=== PATIENT | male | born 1975 | race Caucasian/White ===

== ENCOUNTER 2017-08-18 08:15 | Outpatient (CLI) | payer OTHER ==
[2017-08-18 12:26] LABS: BASOPHILS % (AUTO) 0.6 %; EOSINOPHILS # (AUTO) 0.2 10^3/uL (0.0-0.7); EOSINOPHILS % (AUTO) 3.2 %; HGB - HEMOGLOBIN 16.6 g/dL (14.0-18.0); LYMPHOCYTES # (AUTO) 2.1 10^3/uL (1.5-3.5); LYMPHOCYTES % (AUTO) 29.2 %; MEAN CORPUSCULAR HEMOGLOBIN 30.5 pg (27.0-31.0); MEAN CORPUSCULAR HGB CONC 34.5 g/dL (32.0-36.0); MEAN CORPUSCULAR VOLUME 88.4 fL (80.0-94.0); MEAN PLATELET VOLUME 9.9 fL (7.4-11.4); MONOCYTES # (AUTO) 0.4 10^3/uL (0.0-1.0); MONOCYTES % (AUTO) 5.6 %; NEUTROPHILS # (AUTO) 4.5 10^3/uL (1.5-6.6); NEUTROPHILS % (AUTO) 61.4 %; PLT - PLATELET COUNT 285 10^3/uL (130-450); RED BLOOD COUNT 5.45 10^6/uL (4.70-6.10); RED CELL DISTRIBUTION WIDTH 13.1 % (12.0-15.0); WHITE BLOOD COUNT 7.3 x10^3/uL (4.8-10.8)
[2017-08-18 12:42] LABS: ALBUMIN 4.4 g/dL (3.2-5.5); ALBUMIN/GLOBULIN RATIO 1.5 (1.0-2.2); ALKALINE PHOSPHATASE 58 IU/L (42-121); ALT ALANINE AMINOTRANSFERASE 42 IU/L (10-60); AST ASPARTATE AMINOTRANSFERASE 27 IU/L (10-42); BILIRUBIN,TOTAL 1.2 mg/dL (0.2-1.0); BUN - BLOOD UREA NITROGEN 14 mg/dL (6-20); CALCIUM 8.8 mg/dL (8.5-10.3); CARBON DIOXIDE - CO2 23 mmol/L (21-32); CHLORIDE 104 mmol/L (101-111); CHOL/HDL RATIO 9.5 (<5.0); CHOLESTEROL 237 mg/dL; GFR - MDRD 81 (>89); GLUCOSE 95 mg/dL (70-100); HDL CHOLESTEROL 25 mg/dL; LDL CHOLESTEROL,CALCULATED 140 mg/dL; LDL/HDL RATIO 5.6 (<3.6); SODIUM 135 mmol/L (135-145); TOTAL PROTEIN 7.4 g/dL (6.7-8.2); VLDL CHOLESTEROL 72 mg/dL
[2017-08-18 12:44] LABS: PLATELET ESTIMATE, MANUAL NORMAL (130-450,000) (NORMAL); PLATELET MORPHOLOGY 1+ LARGE PLATELETS (NORMAL); RBC MORPHOLOGY (MULTIPLE) NORMAL APPEARANCE (NORMAL)
== END 2017-08-18 08:16 | disposition home or self-care (01) ==
LOC: LAB.N 08:15
PROVIDERS: ATTEND Family Medicine
DX: E66.9 Obesity, unspecified (principal); K21.9 Gastro-esophageal reflux disease without esophagitis
CPT/HCPCS: 36415; 80053; 80061; 83721; 84443; 85025

== ENCOUNTER 2019-10-16 21:28 | Observation (INO) | payer BC, OTHER ==
[2019-10-16] MEDS ORDERED: SODIUM CHLORIDE 0.9% 1,000 ML IV STA (21:39)
[2019-10-16] MEDS ORDERED: MORPHINE 2 MG/ML CARPUJECT IVP STA (21:39)
[2019-10-16] MEDS ORDERED: ONDANSETRON 4 MG/2 ML VIAL IVP STA (21:39)
--- NOTE | 2019-10-16 21:39 | ED Physician Documentation ---
History of Present Illness - Stated complaint Stated Complaint: ABD PAIN - Chief complaint Chief Complaint: Abd Pain - History obtained from History obtained from: Patient (Patient is a 44-year-old male presents with worsening abdominal pain notes started epigastric this morning and now is having vomiting now to his periumbilical region. Denies any significant past medical history reports low-grade fever as well denies any syncopal episodes denies any hematuria or flank pain denies any history of previous abdominal surgery.) Review of Systems Constitutional: reports: Reviewed and negative Eyes: reports: Reviewed and negative Ears: reports: Reviewed and negative Nose: reports: Reviewed and negative Throat: reports: Reviewed and negative Cardiac: reports: Reviewed and negative Respiratory: reports: Reviewed and negative GI: reports: Abdominal Pain, Nausea, Vomiting : reports: Reviewed and negative Skin: reports: Reviewed and negative Musculoskeletal: reports: Reviewed and negative Neurologic: reports: Reviewed and negative Psychiatric: reports: Reviewed and negative Endocrine: reports: Reviewed and negative Immunocompromised: reports: Reviewed and negative PD PAST MEDICAL HISTORY - Past Medical History Past Medical History: Yes Cardiovascular: None Respiratory: None Neuro: None Endocrine/Autoimmune: None GI: GERD : None HEENT: None Psych: None Musculoskeletal: None Derm: None - Past Surgical History Past Surgical History: Yes General: Other Ortho: Other - Allergies Allergies/Adverse Reactions: Allergies Allergy/AdvReac Type Severity Reaction Status Date / Time No Known Drug Allergies Allergy Verified 10/16/19 21:35 - Social History Does the pt smoke?: Yes Smoking Status: Current every day smoker Does the pt drink ETOH?: Yes Does the pt have substance abuse?: No - Immunizations Immunizations are current?: Yes - POLST Patient has POLST: No PD ED PE NORMAL - Vitals Vital signs reviewed: Yes - General General: Alert and oriented X 3, No acute distress, Well developed/nourished - HEENT HEENT: PERRL - Neck Neck: Supple, no meningeal sign - Cardiac Cardiac: RRR, No murmur, Strong equal pulses - Respiratory Respiratory: No respiratory distress, Clear bilaterally - Abdomen Abdomen: Other (The abdomen is diffusely tender to palpation but worse in the right lower quadrant he has some voluntary guarding has a positive Rovsing's positive Urb[place] sign. Negative Urbina sign. 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, No motor deficit, No sensory deficit, Normal speech - Psych Psych: Normal mood, Normal affect Results - Vitals Vitals: Vital Signs - 24 hr 10/16/19 10/16/19 10/16/19 21:32 22:14 22:39 Temperature 37.8 C H Heart Rate 80 89 Respiratory 18 17 16 Rate Blood Pressure 143/106 H 136/96 H O2 Saturation 97 98 10/16/19 10/16/19 10/17/19 22:50 22:54 00:13 Temperature Heart Rate 83 81 Respiratory 17 16 16 Rate Blood Pressure 111/95 H O2 Saturation 96 99 10/17/19 10/17/19 00:50 01:05 Temperature 36.9 C Heart Rate 78 Respiratory 17 Rate Blood Pressure 119/88 H O2 Saturation 99 Oxygen O2 Source Room air - EKG (time done) 21:38 Rate: Other (no stemi) - Labs Labs: Laboratory Tests 10/16/19 10/16/19 10/16/19 21:45 21:45 21:45 WBC 15.8 H RBC 5.20 Hgb 16.3 Hct 46.9 MCV 90.2 MCH 31.3 H MCHC 34.8 RDW 12.4 Plt Count 279 MPV 9.7 Neut # (Auto) 13.4 H Lymph # (Auto) 1.4 L [place] # (Auto) 0.7 Eos # (Auto) 0.2 Baso # (Auto) 0.1 Absolute Nucleated RBC 0.00 Nucleated RBC % 0.0 PT 12.4 INR 1.1 APTT 30.6 Sodium 136 Potassium 3.5 Chloride 100 L Carbon Dioxide 25 Anion Gap 11.0 BUN 16 Creatinine 1.1 Estimated GFR (MDRD) 72 L Glucose 141 H Lactic Acid Calcium 9.3 Total Bilirubin 0.8 AST 23 ALT 39 Alkaline Phosphatase 65 Total Creatine Kinase 334 H Troponin I High Sens Total Protein 7.5 Albumin 4.1 Globulin 3.4 Albumin/Globulin Ratio 1.2 Lipase 32 Urine Color Urine Clarity Urine pH Ur Specific [place] Urine Protein Urine Glucose (UA) Urine Ketones Urine Occult Blood Urine Nitrite Urine Bilirubin Urine Urobilinogen Ur Leukocyte Esterase Urine RBC Urine WBC Ur Squamous Epith Cells Urine Bacteria Urine Mucus Ur Microscopic Review Urine Culture Comments Urine Opiates Screen Ur Oxycodone Screen Urine Methadone Screen Ur Propoxyphene Screen Ur Barbiturates Screen Ur Tricyclics Screen Ur Phencyclidine Scrn Ur Amphetamine Screen U Methamphetamines Scrn U Benzodiazepines Scrn Urine Cocaine Screen U Cannabinoids Screen Ethyl Alcohol < 5.0 10/16/19 10/16/19 10/16/19 21:45 21:45 23:05 WBC RBC Hgb Hct MCV MCH MCHC RDW Plt Count MPV Neut # (Auto) Lymph # (Auto) [place] # (Auto) Eos # (Auto) Baso # (Auto) Absolute Nucleated RBC Nucleated RBC % PT INR APTT Sodium Potassium Chloride Carbon Dioxide Anion Gap BUN Creatinine Estimated GFR (MDRD) Glucose Lactic Acid 2.3 H Calcium Total Bilirubin AST ALT Alkaline Phosphatase Total Creatine Kinase Troponin I High Sens 3.9 Total Protein Albumin Globulin Albumin/Globulin Ratio Lipase Urine Color YELLOW Urine Clarity CLEAR Urine pH 7.0 Ur Specific [place] 1.010 Urine Protein NEGATIVE Urine Glucose (UA) NEGATIVE Urine Ketones NEGATIVE Urine Occult Blood MODERATE H Urine Nitrite NEGATIVE Urine Bilirubin NEGATIVE Urine Urobilinogen 0.2 (NORMAL) Ur Leukocyte Esterase NEGATIVE Urine RBC 11-25 H Urine WBC 0-3 Ur Squamous Epith Cells RARE Squamous Urine Bacteria Rare Urine Mucus Few Strands Ur Microscopic Review INDICATED Urine Culture Comments NOT INDICATED Urine Opiates Screen POSITIVE H Ur Oxycodone Screen NEGATIVE Urine Methadone Screen NEGATIVE Ur Propoxyphene Screen NEGATIVE Ur Barbiturates Screen NEGATIVE Ur Tricyclics Screen NEGATIVE Ur Phencyclidine Scrn NEGATIVE Ur Amphetamine Screen NEGATIVE U Methamphetamines Scrn NEGATIVE U Benzodiazepines Scrn NEGATIVE Urine Cocaine Screen NEGATIVE U Cannabinoids Screen NEGATIVE Ethyl Alcohol PD MEDICAL DECISION MAKING - ED course Complexity details: reviewed results, re-evaluated patient, considered differential (appendicitis), d/w patient, d/w family, d/w exchange underwriting consultant - Consults Consults: Discussed case with (general surgery. dr. parson. will admit and take to OR in am.) Departure - Departure Disposition: ED Transfer to [facility] Clinical Impression: Appendicitis Qualifiers: Appendicitis type: acute appendicitis Acute appendicitis type: with localized peritonitis Appendicitis gangrene presence: without gangrene Appendicitis perforation presence: without perforation Appendicitis abscess presence: without abscess Qualified Code(s): K35.30 - Acute appendicitis with localized peritonitis, without perforation or gangrene Condition: Stable
[2019-10-16 21:51] LABS: BASOPHILS # (AUTO) 0.1 10^3/uL (0.0-0.1); BASOPHILS % (AUTO) 0.5 %; EOSINOPHILS # (AUTO) 0.2 10^3/uL (0.0-0.7); EOSINOPHILS % (AUTO) 1.3 %; HGB - HEMOGLOBIN 16.3 g/dL (14.0-18.0); LYMPHOCYTES # (AUTO) 1.4 10^3/uL (1.5-3.5); LYMPHOCYTES % (AUTO) 8.6 %; MEAN CORPUSCULAR HEMOGLOBIN 31.3 pg (27.0-31.0); MEAN CORPUSCULAR HGB CONC 34.8 g/dL (32.0-36.0); MEAN CORPUSCULAR VOLUME 90.2 fL (80.0-94.0); MEAN PLATELET VOLUME 9.7 fL (7.4-11.4); MONOCYTES # (AUTO) 0.7 10^3/uL (0.0-1.0); MONOCYTES % (AUTO) 4.2 %; NEUTROPHILS # (AUTO) 13.4 10^3/uL (1.5-6.6); PLT - PLATELET COUNT 279 10^3/uL (130-450); RED CELL DISTRIBUTION WIDTH 12.4 % (12.0-15.0); WHITE BLOOD COUNT 15.8 x10^3/uL (4.8-10.8)
[2019-10-16 21:57] LABS: INR 1.1 (0.8-1.2); PT - PROTHROMBIN TIME 12.4 secs (9.9-12.6)
[2019-10-16] MEDS ORDERED: PROMETHAZINE INJ 25 MG in SODIUM CHLORIDE 0.9% 50 ML IV STA (21:58)
[2019-10-16 22:04] LABS: PARTIAL THROMBOPLASTIN TIME 30.6 secs (24.9-33.3)
[2019-10-16 22:06] LABS: ALBUMIN 4.1 g/dL (3.2-5.5); ALBUMIN/GLOBULIN RATIO 1.2 (1.0-2.2); ALKALINE PHOSPHATASE 65 IU/L (42-121); ALT ALANINE AMINOTRANSFERASE 39 IU/L (10-60); AST ASPARTATE AMINOTRANSFERASE 23 IU/L (10-42); BILIRUBIN,TOTAL 0.8 mg/dL (0.2-1.0); BUN - BLOOD UREA NITROGEN 16 mg/dL (6-20); CALCIUM 9.3 mg/dL (8.5-10.3); CARBON DIOXIDE - CO2 25 mmol/L (21-32); CHLORIDE 100 mmol/L (101-111); CK- CREATINE KINASE 334 IU/L (22-269); CREATININE 1.1 mg/dL (0.6-1.2); GLUCOSE 141 mg/dL (70-100); LIPASE 32 U/L (22-51); SODIUM 136 mmol/L (135-145); TOTAL PROTEIN 7.5 g/dL (6.7-8.2)
[2019-10-16] MEDS ORDERED: IOVERSOL 320 100 ML VIAL IVP ONE ×2 (22:22→22:52)
[2019-10-16 23:15] LABS: MUDS CUTOFF CONCENTRATIONS CUTOFF CONC BELOW:
[2019-10-16 23:18] LABS: BILIRUBIN,URINE NEGATIVE (NEGATIVE); GLUCOSE, URINE (UA) NEGATIVE (NEGATIVE); KETONES,URINE (UA) NEGATIVE (NEGATIVE); LEUKOCYTE ESTERASE, URINE NEGATIVE (NEGATIVE); NITRITE,URINE NEGATIVE (NEGATIVE); OCCULT BLOOD,URINE MODERATE (NEGATIVE); PROTEIN,URINE NEGATIVE (NEGATIVE); UROBILINOGEN,URINE 0.2 (NORMAL) E.U./dL (NORMAL)
[2019-10-16 23:19] LABS: CLARITY,URINE CLEAR (CLEAR)
[2019-10-16 23:24] LABS: BACTERIA,URINE Rare /HPF (None Seen); MUCUS,URINE Few Strands; SQUAMOUS EPITHELIAL CELL,UR RARE Squamous (<= Few)
[2019-10-16 23:28] LABS: AMPHETAMINE SCREEN,URINE NEGATIVE (NEGATIVE); BENZODIAZEPINES SCREEN, URINE NEGATIVE (NEGATIVE); COCAINE SCREEN URINE NEGATIVE (NEGATIVE); METHADONE SCREEN, URINE NEGATIVE (NEGATIVE); METHAMPHETAMINES SCREEN, URINE NEGATIVE (NEGATIVE); OPIATE SCREEN, URINE POSITIVE (NEGATIVE); OXYCODONE SCREEN, URINE NEGATIVE (NEGATIVE); PROPOXYPHENE SCREEN, URINE NEGATIVE (NEGATIVE); TRICYCLIC ANTIDEPRESSANT,URINE NEGATIVE (NEGATIVE)
[2019-10-17] MEDS ORDERED: PIPERACILLIN/TAZOBACTAM 3.375 GM in SODIUM CHLORIDE 0.9% MINIBAG 100 ML IV STA (00:50)
[2019-10-17] MEDS ORDERED: SODIUM CHLORIDE FLUSH 0.9% 10 ML SYRINGE IVP PRN ×2 (01:15→02:18)
--- NOTE | 2019-10-17 01:28 | HISTORY & PHYSICAL EXAMINATION ---
HPI - History Obtained From History obtained from: Patient Exam limitations: No limitations - History of Present Illness Pain/Problem Location Description: ABDOMINAL PAIN WITH NAUSEA AND VOMITING Severity at the worst: reports: Severe Pain Quality: reports: Sharp, Cramping, Other (RLQ pain - initially achy, superpubic, migrating epigastric, now diffuse. Associated nausea with emesis. No diarrhea.) PMH/PSH - Past Medical History Cardiovascular: positive: None Respiratory: positive: None Neuro: positive: None Endocrine/Autoimmune: positive: None GI: positive: GERD : positive: None HEENT: positive: None Psych: positive: None Musculoskeletal: positive: None Derm: positive: None MRSA Hx?: No - Past Surgical History General: positive: Other Ortho: positive: Other Other past surgical history: UMBILICAL HERNIA REPAIR, PRIMARY (DENIES MESH) Social & Family Hx - Social History Does the pt smoke?: Yes Smoking Status: Current every day smoker Does the pt drink ETOH?: Yes Does the pt have substance abuse?: No - POLST Patient has POLST: No Meds/Allgy - Allergies Allergies/Adverse Reactions: Allergies Allergy/AdvReac Type Severity Reaction Status Date / Time No Known Drug Allergies Allergy Verified 10/16/19 21:35 Review of Systems - Constitutional Constitutional: reports: Fatigue, Fever - Gastrointestinal Gastrointestinal: reports: Nausea, Vomiting Exam - Vital Signs Vital Signs: Vital Signs x48h Temp Pulse Resp BP Pulse Ox 10/17/19 01:05 78 17 119/88 H 99 10/17/19 00:50 36.9 C 10/17/19 00:13 81 16 111/95 H 99 10/16/19 22:54 16 10/16/19 22:50 83 17 96 10/16/19 22:39 16 10/16/19 22:14 89 17 136/96 H 98 10/16/19 21:32 37.8 C H 80 18 143/106 H 97 - Physical Exam General Appearance: positive: Moderate distress Eyes Bilateral: positive: Normal inspection, PERRL, EOMI Neck: positive: Nml inspection Respiratory: positive: Chest non-tender, No respiratory distress, Breath sounds nml Cardiovascular: positive: Regular rate & rhythm, Tachycardia Abdomen: positive: Tenderness, Guarding, Rebound Skin: positive: Color nml Extremities: positive: Full ROM Neurologic/Psychiatric: positive: Oriented x3, CN's nml (2-12) Results - Lab Results Fish Bones: 10/16/19 21:45 10/16/19 21:45 Other Lab Results: Lab Results x24hrs 10/16/19 10/16/19 10/16/19 Range/Units 23:05 21:45 21:45 WBC (4.8-10.8) x10^3/uL RBC (4.70-6.10) 10^6/uL Hgb (14.0-18.0) g/dL Hct (42.0-52.0) % MCV (80.0-94.0) fL MCH (27.0-31.0) pg MCHC (32.0-36.0) g/dL RDW (12.0-15.0) % Plt Count (130-450) 10^3/uL MPV (7.4-11.4) fL Neut # (Auto) (1.5-6.6) 10^3/uL Lymph # (Auto) (1.5-3.5) 10^3/uL [place] # (Auto) (0.0-1.0) 10^3/uL Eos # (Auto) (0.0-0.7) 10^3/uL Baso # (Auto) (0.0-0.1) 10^3/uL Absolute Nucleated RBC x10^3/uL Nucleated RBC % /100WBC PT (9.9-12.6) secs INR (0.8-1.2) APTT (24.9-33.3) secs Sodium (135-145) mmol/L Potassium (3.5-5.0) mmol/L Chloride (101-111) mmol/L Carbon Dioxide (21-32) mmol/L Anion Gap (6-13) BUN (6-20) mg/dL Creatinine (0.6-1.2) mg/dL Estimated GFR (MDRD) (>89) Glucose (70-100) mg/dL Lactic Acid 2.3 H (0.5-2.2) mmol/L Calcium (8.5-10.3) mg/dL Total Bilirubin (0.2-1.0) mg/dL AST (10-42) IU/L ALT (10-60) IU/L Alkaline Phosphatase (42-121) IU/L Total Creatine Kinase (22-269) IU/L Troponin I High Sens 3.9 (2.3-19.7) ng/L Total Protein (6.7-8.2) g/dL Albumin (3.2-5.5) g/dL Globulin (2.1-4.2) g/dL Albumin/Globulin Ratio (1.0-2.2) Lipase (22-51) U/L Urine Color YELLOW Urine Clarity CLEAR (CLEAR) Urine pH 7.0 (5.0-7.5) PH Ur Specific [place] 1.010 (1.002-1.030) Urine Protein NEGATIVE (NEGATIVE) mg/dL Urine Glucose (UA) NEGATIVE (NEGATIVE) mg/dL Urine Ketones NEGATIVE (NEGATIVE) mg/dL Urine Occult Blood MODERATE H (NEGATIVE) Urine Nitrite NEGATIVE (NEGATIVE) Urine Bilirubin NEGATIVE (NEGATIVE) Urine Urobilinogen 0.2 (NORMAL) (NORMAL) E.U./dL Ur Leukocyte Esterase NEGATIVE (NEGATIVE) Urine RBC 11-25 H (0-5) /HPF Urine WBC 0-3 (0-3) /HPF Ur Squamous Epith Cells RARE Squamous (<= Few) Urine Bacteria Rare (None Seen) /HPF Urine Mucus Few Strands Ur Microscopic Review INDICATED Urine Culture Comments NOT INDICATED Urine Opiates Screen POSITIVE H (NEGATIVE) Ur Oxycodone Screen NEGATIVE (NEGATIVE) Urine Methadone Screen NEGATIVE (NEGATIVE) Ur Propoxyphene Screen NEGATIVE (NEGATIVE) Ur Barbiturates Screen NEGATIVE (NEGATIVE) Ur Tricyclics Screen NEGATIVE (NEGATIVE) Ur Phencyclidine Scrn NEGATIVE (NEGATIVE) Ur Amphetamine Screen NEGATIVE (NEGATIVE) U Methamphetamines Scrn NEGATIVE (NEGATIVE) U Benzodiazepines Scrn NEGATIVE (NEGATIVE) Urine Cocaine Screen NEGATIVE (NEGATIVE) U Cannabinoids Screen NEGATIVE (NEGATIVE) Ethyl Alcohol mg/dL 10/16/19 10/16/19 10/16/19 Range/Units 21:45 21:45 21:45 WBC 15.8 H (4.8-10.8) x10^3/uL RBC 5.20 (4.70-6.10) 10^6/uL Hgb 16.3 (14.0-18.0) g/dL Hct 46.9 (42.0-52.0) % MCV 90.2 (80.0-94.0) fL MCH 31.3 H (27.0-31.0) pg MCHC 34.8 (32.0-36.0) g/dL RDW 12.4 (12.0-15.0) % Plt Count 279 (130-450) 10^3/uL MPV 9.7 (7.4-11.4) fL Neut # (Auto) 13.4 H (1.5-6.6) 10^3/uL Lymph # (Auto) 1.4 L (1.5-3.5) 10^3/uL [place] # (Auto) 0.7 (0.0-1.0) 10^3/uL Eos # (Auto) 0.2 (0.0-0.7) 10^3/uL Baso # (Auto) 0.1 (0.0-0.1) 10^3/uL Absolute Nucleated RBC 0.00 x10^3/uL Nucleated RBC % 0.0 /100WBC PT 12.4 (9.9-12.6) secs INR 1.1 (0.8-1.2) APTT 30.6 (24.9-33.3) secs Sodium 136 (135-145) mmol/L Potassium 3.5 (3.5-5.0) mmol/L Chloride 100 L (101-111) mmol/L Carbon Dioxide 25 (21-32) mmol/L Anion Gap 11.0 (6-13) BUN 16 (6-20) mg/dL Creatinine 1.1 (0.6-1.2) mg/dL Estimated GFR (MDRD) 72 L (>89) Glucose 141 H (70-100) mg/dL Lactic Acid (0.5-2.2) mmol/L Calcium 9.3 (8.5-10.3) mg/dL Total Bilirubin 0.8 (0.2-1.0) mg/dL AST 23 (10-42) IU/L ALT 39 (10-60) IU/L Alkaline Phosphatase 65 (42-121) IU/L Total Creatine Kinase 334 H (22-269) IU/L Troponin I High Sens (2.3-19.7) ng/L Total Protein 7.5 (6.7-8.2) g/dL Albumin 4.1 (3.2-5.5) g/dL Globulin 3.4 (2.1-4.2) g/dL Albumin/Globulin Ratio 1.2 (1.0-2.2) Lipase 32 (22-51) U/L Urine Color Urine Clarity (CLEAR) Urine pH (5.0-7.5) PH Ur Specific [place] (1.002-1.030) Urine Protein (NEGATIVE) mg/dL Urine Glucose (UA) (NEGATIVE) mg/dL Urine Ketones (NEGATIVE) mg/dL Urine Occult Blood (NEGATIVE) Urine Nitrite (NEGATIVE) Urine Bilirubin (NEGATIVE) Urine Urobilinogen (NORMAL) E.U./dL Ur Leukocyte Esterase (NEGATIVE) Urine RBC (0-5) /HPF Urine WBC (0-3) /HPF Ur Squamous Epith Cells (<= Few) Urine Bacteria (None Seen) /HPF Urine Mucus Ur Microscopic Review Urine Culture Comments Urine Opiates Screen (NEGATIVE) Ur Oxycodone Screen (NEGATIVE) Urine Methadone Screen (NEGATIVE) Ur Propoxyphene Screen (NEGATIVE) Ur Barbiturates Screen (NEGATIVE) Ur Tricyclics Screen (NEGATIVE) Ur Phencyclidine Scrn (NEGATIVE) Ur Amphetamine Screen (NEGATIVE) U Methamphetamines Scrn (NEGATIVE) U Benzodiazepines Scrn (NEGATIVE) Urine Cocaine Screen (NEGATIVE) U Cannabinoids Screen (NEGATIVE) Ethyl Alcohol < 5.0 mg/dL - Diagnostic Imaging Results Diagnostic Imaging Results: positive: Prelim report reviewed (ACUTE APPEND ICITIS, RETROCECAL, FAT STRANDING, NONPERFORATED) Sepsis Event Note (H) - Evaluation Current Stage of Sepsis: Sepsis Possible source of Sepsis: positive: GI tract/intra-abdominal Confirmed Source and Organism (if known) of Sepsis: PRESUMED APPENDICITIS PER IMAGING - Sepsis Criteria Sepsis Criteria: Recorded Temperature greater than 38.3C or Less than 36C, Recorded Heart Rate greater than 90 bpm, WBC count greater than 12,000 or less than 4000 Impression/Plan - Problem List Problem List: ACUTE APPENDICITIS WITH ABDOMINAL SEPSIS, ELEVATED WBC. NO SIGNIFICANT PMH. CXR CLEAR. - NPO, IVF, IV ABX. - OR FOR DX LAP, LAP APPE. - OBSERVATION FOR POST OPERATIVE CARE.
[2019-10-17] MEDS ORDERED: LACTATED RINGERS 1,000 ML IV ONE (01:46)
[2019-10-17] MEDS ORDERED: BUPIVACAINE 0.5% PF 30 ML VIAL ONE (01:56)
[2019-10-17] MEDS ORDERED: LIDOCAINE 1%-EPI 1:100000 20 ML MDV ONE (01:56)
[2019-10-17] MEDS ORDERED: ACETAMINOPHEN 1,000 MG/100 ML 100 ML IV SCH (02:00)
[2019-10-17] MEDS ORDERED: ROPIVACAINE 0.5% PF 20 ML AMPULE ONE (02:11)
[2019-10-17] MEDS ORDERED: oxyCODONE 5 MG TABLET PO PRN (02:18)
[2019-10-17] MEDS ORDERED: ONDANSETRON 4 MG/2 ML VIAL IVP PRN (02:18)
[2019-10-17] MEDS ORDERED: HYDROmorphone 0.5 MG/0.5 ML SYRINGE IVP PRN (02:18)
[2019-10-17] MEDS ORDERED: ONDANSETRON 4 MG/2 ML VIAL IVP ONE (02:22)
[2019-10-17] MEDS ORDERED: DEXAMETHASONE 4 MG/ML VIAL IVP ONE (02:22)
[2019-10-17] MEDS ORDERED: LIDOCAINE-MPF 2% 5 ML VIAL IM ONE (02:22)
[2019-10-17] MEDS ORDERED: NEOSTIGMINE 1 MG/1 ML 10 ML MDV IVP ONE (02:22)
[2019-10-17] MEDS ORDERED: PROPOFOL 200 MG/20 ML VIAL IVP ONE (02:22)
[2019-10-17] MEDS ORDERED: KETOROLAC 30 MG/ML VIAL IVP ONE (02:22)
[2019-10-17] MEDS ORDERED: PHENYLEPHRINE 10 MG/ML VIAL IV ONE (02:22)
[2019-10-17] MEDS ORDERED: ROCURONIUM 50 MG/5 ML VIAL IVP ONE (02:22)
[2019-10-17] MEDS ORDERED: ACETAMINOPHEN 1,000 MG/100 ML 100 ML IV ONE (02:22)
[2019-10-17] MEDS ORDERED: fentaNYL 100 MCG/2 ML VIAL IVP ONE (02:22)
[2019-10-17] MEDS ORDERED: GLYCOPYRROLATE 1 MG/5 ML VIAL IVP ONE (02:22)
--- NOTE | 2019-10-17 02:22 | ANESTHESIA ---
Pre-Anesthesia VS, & Labs - Diagnosis acute apendicitis - Procedure Lap Appy Vital Signs: Temp Pulse Resp BP Pulse Ox 36.9 C 71 17 120/85 H 96 10/17/19 00:50 10/17/19 01:35 10/17/19 01:35 10/17/19 01:35 10/17/19 01:35 Height 5 ft 11 in Weight (kg) 102.058 kg Body Mass Index 31.4 - NPO >8 hours - Lab Results Current Lab Results: Laboratory Tests 10/16/19 23:05: Urine Opiates Screen POSITIVE H, Ur Oxycodone Screen NEGATIVE, Urine Methadone Screen NEGATIVE, Ur Propoxyphene Screen NEGATIVE, Ur Barbiturates Screen NEGATIVE, Ur Tricyclics Screen NEGATIVE, Ur Phencyclidine Scrn NEGATIVE, Ur Amphetamine Screen NEGATIVE, U Methamphetamines Scrn NEGATIVE, U Benzodiazepines Scrn NEGATIVE, Urine Cocaine Screen NEGATIVE, U Cannabinoids Screen NEGATIVE 10/16/19 21:45: Lactic Acid 2.3 H 10/16/19 21:45: Troponin I High Sens 3.9 10/16/19 21:45: Sodium 136, Potassium 3.5, Chloride 100 L, Carbon Dioxide 25, Anion Gap 11.0, BUN 16, Creatinine 1.1, Estimated GFR (MDRD) 72 L, Glucose 141 H , Calcium 9.3, Total Bilirubin 0.8, AST 23, ALT 39, Alkaline Phosphatase 65, Total Creatine Kinase 334 H, Total Protein 7.5, Albumin 4.1, Globulin 3.4, Albumin/Globulin Ratio 1.2, Lipase 32, Ethyl Alcohol < 5.0 10/16/19 21:45: PT 12.4, INR 1.1, APTT 30.6 10/16/19 21:45: WBC 15.8 H, RBC 5.20, Hgb 16.3, Hct 46.9, MCV 90.2, MCH 31.3 H, MCHC 34.8, RDW 12.4, Plt Count 279, MPV 9.7, Neut # (Auto) 13.4 H, Lymph # (Aut o) 1.4 L, [place] # (Auto) 0.7, Eos # (Auto) 0.2, Baso # (Auto) 0.1, Absolute Nucleated RBC 0.00, Nucleated RBC % 0.0 Fish Bones: 10/16/19 21:45 10/16/19 21:45 Home Medications and Allergies Active Medications Heparin Sodium (Porcine) () 5,000 unit SUBQ TID DELMER Acetaminophen (Ofirmev) 100 mls @ 400 mls/hr IV Q6H DELMER Piperacillin Sod/Tazobactam (Sod 3.375 gm/ Sodium Chloride) 100 mls @ 200 mls/hr IV Q6H DELMER Sodium Chloride (Normal Saline Flush 0.9%) 10 ml IVP 0100,0900,1700 DELMER Sodium Chloride (Normal Saline Flush 0.9%) 10 ml IVP PRN PRN PRN Reason: NEEDED PER PROVIDER ORDERS Allergies/Adverse Reactions: Allergies Allergy/AdvReac Type Severity Reaction Status Date / Time No Known Drug Allergies Allergy Verified 10/16/19 21:35 Anes History & Medical History - Anesthetic History Anesthesia Complications: reports: No previous complications Family history of Anesthesia Complications: Denies Family history of Malignant Hyperthermia: Denies - Medical History Cardiovascular: reports: None Pulmonary: reports: None, Other (smoker [id number]) Gastrointestinal: reports: GERD Urinary: reports: None Neuro: reports: None Musculoskeletal: reports: None Endocrine/Autoimmune: reports: None Blood Disorders: reports: None Skin: reports: None Smoking Status: Current every day smoker Psychosocial: reports: No issues indicated - Surgical History General: Other Orthopedic: Other Other Past Surgical History: UMBILICAL HERNIA REPAIR, PRIMARY (DENIES MESH) Exam General: Alert, Oriented x3, Cooperative, No acute distress Dental: WNL Mouth Openin Fingerbreadth Neck Mobility: Normal Mallampati classification: IV Thyromental Distance: 4-6 cm Respiratory: Lungs clear, Normal breath sounds, No respiratory distress, No accessory muscle use Cardiovascular: Regular rate, Normal S1, Normal S2, No murmurs Abdomen: Normal bowel sounds, Soft, No tenderness, No hepatospenomegaly, No masses Extremities: No clubbing, No cyanosis, No edema, Normal pulses, No tenderness/swelling Neurological: Normal gait, Normal speech, Strength at 5/5 X4 ext, Normal tone, Sensation intact, Cranial nerves 3-12 NL, Reflexes 2+ Mental/Cognitive Status: Alert/Oriented X3, Normal for patient Cognitive Status: Within normal limits Plan Anesthesia Type: General, Transverse Abdominis Plane (TAP) Block Regional Block: Per Surgeon's request for Post Op pain control Consent for Procedure(s) Verified and Reviewed: Yes Code Status: Attempt Resuscitation ASA classification: 2-Mild systemic disease Is this case an emergency?: Yes
--- NOTE | 2019-10-17 02:35 | OPERATIVE REPORT ---
Operative Report - General Planned Procedure: Diagnostic laparoscopy Laparoscopic Appendectomy Pre-Op Diagnosis: Abdominal pain; Acute appendicitis; Abdominal sepsis Procedure Performed: Diagnostic Laparoscopy Laparoscopic Appendectomy Laparoscopic adhesiolysis Abdominal washout, Lap Primary Umbilical hernia repair Post Op Diagnosis: Same; suppurative, non perforated appendicitis; early phlegmon; UH incar - Procedure Note Primary Surgeon: Nica Anesthesia Provider: Flo Anesthesia Technique: General ET tube, Other Pathology: Appendix Umbilical hernia contents Estimated Blood Loss (mL): 20 Indications: Abdominal pain Abdominal sepsis Acute appendicitis Findings: suppurative, nonperforated appendicitis with early phlegmonous changes - Other Other Information/Narrative: See addendum
[2019-10-17] MEDS ORDERED: LIDOCAINE 1%-EPI 1:100000 20 ML MDV SUBQ ONE (03:13)
[2019-10-17] MEDS ORDERED: BUPIVACAINE 0.5% PF 30 ML VIAL INFIL ONE (03:13)
[2019-10-17] MEDS: PIPERACILLIN/TAZOBACTAM 3.375 GM in SODIUM CHLORIDE 0.9% MINIBAG 100 ML IV SCH ×3 (05:24→14:58)
[2019-10-17] MEDS: ACETAMINOPHEN 1,000 MG/100 ML 100 ML IV SCH ×3 (05:28→15:40)
[2019-10-17] MEDS: HEPARIN 5,000 UNIT/ML VIAL SUBQ SCH ×3 (05:29→15:02)
[2019-10-17] MEDS: D5NS W/20 MEQ KCL 1,000 ML IV SCH ×2 (05:40→14:58)
[2019-10-17 05:47] LABS: BASOPHILS # (AUTO) 0.1 10^3/uL (0.0-0.1); BASOPHILS % (AUTO) 0.3 %; EOSINOPHILS % (AUTO) 0.2 %; HGB - HEMOGLOBIN 15.1 g/dL (14.0-18.0); LYMPHOCYTES # (AUTO) 0.8 10^3/uL (1.5-3.5); LYMPHOCYTES % (AUTO) 4.9 %; MEAN CORPUSCULAR HEMOGLOBIN 31.3 pg (27.0-31.0); MEAN CORPUSCULAR HGB CONC 33.9 g/dL (32.0-36.0); MEAN CORPUSCULAR VOLUME 92.1 fL (80.0-94.0); MEAN PLATELET VOLUME 9.4 fL (7.4-11.4); MONOCYTES # (AUTO) 0.4 10^3/uL (0.0-1.0); MONOCYTES % (AUTO) 2.3 %; NEUTROPHILS # (AUTO) 14.2 10^3/uL (1.5-6.6); NEUTROPHILS % (AUTO) 91.8 %; PLT - PLATELET COUNT 233 10^3/uL (130-450); RED BLOOD COUNT 4.83 10^6/uL (4.70-6.10); RED CELL DISTRIBUTION WIDTH 12.7 % (12.0-15.0); WHITE BLOOD COUNT 15.4 x10^3/uL (4.8-10.8)
[2019-10-17 05:57] LABS: ALBUMIN 3.8 g/dL (3.2-5.5); ALBUMIN/GLOBULIN RATIO 1.3 (1.0-2.2); BILIRUBIN,TOTAL 1.3 mg/dL (0.2-1.0); CALCIUM 8.5 mg/dL (8.5-10.3); CREATININE 1.1 mg/dL (0.6-1.2); TOTAL PROTEIN 6.8 g/dL (6.7-8.2)
[2019-10-17] MEDS ORDERED: PIPERACILLIN/TAZOBACTAM 3.375 GM in SODIUM CHLORIDE 0.9% MINIBAG 100 ML IV SCH (06:00)
--- NOTE | 2019-10-17 08:17 | XRAY Report ---
Reason: cp Procedure Date: 10/16/2019 Accession Number: [id number] / [id number] Procedure: XR - Chest 1 View X-Ray CPT Code: 62753 Final Report FULL RESULT: PROCEDURE: Chest 1 View X-Ray INDICATIONS: cp TECHNIQUE: One view of the chest was acquired. COMPARISON: None FINDINGS: Surgical changes and devices: None. Lungs and pleura: No pleural effusions or pneumothorax. Lungs are clear. Mediastinum: Mediastinal contours appear normal. Heart size is normal. Bones and chest wall: No suspicious bony lesions. Overlying soft tissues appear unremarkable. IMPRESSION: No evidence acute pulmonary process. Reviewed by: Berhane Gallo MD on 10/17/2019 8:16 AM PDT Approved by: Berhane Gallo MD on 10/17/2019 8:16 AM PDT Station ID: [id number]
--- NOTE | 2019-10-17 08:17 | CT Report ---
Reason: abd pain Procedure Date: 10/16/2019 Accession Number: [id number] / [id number] Procedure: CT - Abdomen/Pelvis W CPT Code: Final Report FULL RESULT: PROCEDURE: Abdomen/Pelvis W INDICATIONS: abd pain CONTRAST: IV CONTRAST: Optiray 320 ml: 100 PO CONTRAST: *NO PO CONTRAST TECHNIQUE: After the administration of oral and intravenous contrast, 5 mm thick sections acquired from the diaphragms to the symphysis. 5 mm thick coronal and sagittal reformats were acquired. For radiation dose reduction, the following was used: automated exposure control, adjustment of mA and/or kV according to patient size. COMPARISON: None. FINDINGS: Image quality: Excellent. ABDOMEN: Lung bases: Lung bases are clear. Heart size is normal. Small incidental medial right hemidiaphragm. Defect with herniated fat. Reference image 36/6 (coronal reformats) and image 15/3 (axial images). Solid organs: Liver and is normal in size and enhancement. Subtle low density lesion in the spleen, an incidental finding, may represent a small hemangioma. Spleen is normal in size. Gallbladder is unremarkable Biliary system is non dilated. Pancreas enhances normally. No adrenal nodules. Kidneys demonstrate normal size and enhancement, without hydronephrosis. Peritoneum and bowel: The appendix is dilated, fluid-filled, and inflamed, with surrounding inflammation in the periappendiceal fat. No free air. No abscess cavity. Bowel loops otherwise demonstrate normal wall thickness and caliber. There is fecalization of bowel contents in the terminal ileum. No free fluid or air. Nodes and vessels: No retroperitoneal or mesenteric adenopathy by size criteria. Aorta and inferior vena cava are normal in size. Miscellaneous: No ventral hernias. PELVIS: Genitourinary: Bladder wall thickness is normal. Miscellaneous: No inguinal hernias or adenopathy. Bones: No suspicious bony lesions. No vertebral body compression fractures. IMPRESSION: 1. Acute nonruptured appendicitis. A preliminary report with the above findings was provided at the time of the study by [facility]. This was also discussed by phone with a nurse in the emergency department at the time of initial preliminary interpretation. Reviewed by: Berhane Gallo MD on 10/17/2019 8:15 AM PDT Approved by: Berhane Gallo MD on 10/17/2019 8:15 AM PDT Station ID: [id number]
[2019-10-17] MEDS ORDERED: SODIUM CHLORIDE FLUSH 0.9% 10 ML SYRINGE IVP SCH ×2 (09:00)
--- NOTE | 2019-10-17 09:57 | PHARMACY PROGRESS NOTE ---
- Best Possible Medication History Admit Date and Time: 10/17/19 0218 Processed by: Pharmacy Medication History completed: Yes Patient Interview: Completed As the person ultimately responsible for medication therapy, providers are able to order a medication from an existing home medication list in [facility] via the "Reconcile Routine" prior to Confirmation of that medication by support merchandiser. Such practice is discouraged except when the physician, in their clinical rob gment, deems that a medical need exists for a medication without regard to previous use.
--- NOTE | 2019-10-17 14:03 | Discharge Plan ---
Discharge Plan Problem Reviewed?: Yes Disposition: Home, Self Care Condition: Stable Prescriptions: Amox/Clav 875/125 [Augmentin] 1 each PO Q12H 14 Days #28 tablet traMADol [Ultram] 50 mg PO ONCE 6 Days #24 tablet Diet: Regular Activity Restrictions: no heavy lifting/pushing/pulling Shower Restrictions: No Driving Restrictions: Yes (no driving while taking narcotics) Instruction Topics: Abdomen Surg Dc, Sepsis Dc, Appendectomy After, Appendx Surg, Appendectomy Laparoscopic Dc Health Concerns: Sepsis resolved, source controlled with appendectomy. Notable for elevated WBC, LACTATE, TEMP & HR on admission; intraoperative findings consistent with appendicitis. Plan of Treatment: Complete outpatient antibiotics. Two weeks Augmentin ordered. Take with food and OTC probiotics. No Smoking: If you smoke, Please STOP! Call for help. Follow-up with: Brad Yousif MD [Provider Admit Priv/Credential] -
--- NOTE | 2019-10-17 16:23 | DISCHARGE SUMMARY ---
Discharge Summary Condition at Discharge: Stable Discharge Disposition: Home, Self Care - ALLERGIES Allergies/Adverse Reactions: Allergies Allergy/AdvReac Type Severity Reaction Status Date / Time No Known Drug Allergies Allergy Verified 10/16/19 21:35 - MEDICATIONS Home Medications: Ambulatory Orders Medication Instructions Recorded Confirmed Amox/Clav 875/125 [Augmentin] 1 each PO Q12H 14 Days #28 tablet 10/17/19 Pantoprazole [Protonix] 40 mg PO HS tablet 10/17/19 traMADol [Ultram] 50 mg PO ONCE #24 tablet 10/17/19 traMADol [Ultram] 50 mg PO ONCE 6 Days #24 tablet 10/17/19 - LABS Result Diagrams: 10/17/19 05:35 10/17/19 05:35 - SEPSIS Current Stage of Sepsis: Sepsis Possible source of Sepsis: GI tract/intra-abdominal Sepsis Criteria: Recorded Temperature greater than 38.3C or Less than 36C, Recorded Heart Rate greater than 90 bpm, WBC count greater than 12,000 or less than 4000
--- NOTE | 2019-10-17 16:24 | OPERATIVE REPORT ---
Operative Report - General Admit Date: 10/17/19 - Other Other Information/Narrative: Planned Procedure: Diagnostic laparoscopy Laparoscopic Appendectomy Pre-Op Diagnosis: Abdominal pain; Acute appendicitis; Abdominal sepsis Procedure Performed: Diagnostic Laparoscopy Laparoscopic Appendectomy Laparoscopic adhesiolysis Abdominal washout, Lap Primary Umbilical hernia repair Post Op Diagnosis: Same; suppurative, non perforated appendicitis; early phlegmon; [facility] incar Procedure Note Primary Surgeon: Nica Anesthesia Provider: Flo Anesthesia Technique: General ET tube, Other Pathology: Appendix Umbilical hernia contents Estimated Blood Loss (mL): 20 Indications: Abdominal pain Abdominal sepsis Acute appendicitis OPERATIVE PROCEDURE: The patient was taken to the operating room, placed supine on the operating table. The patent was already obtained tor informed consent which was documented in the patients permanent medical record The patient was induced for general endotracheal anesthesia. The patient was positioned, off loaded and padded at all pressure points. The patient was placed for a Fung catheter and tucked for the left arm. The patient was prepped and draped in the usual sterile fashion. The patient was called for a time out which was agreed to all in the room. Open Al technique was performed through umbilicus and umbilical trocar was placed. This was achieved with a circumlinear noemi-umbilical incision. This is taken through the subcutaneous fat, the umbilical stalk was dissected off and obvious hernia defect was appreciated. This was done without any injury to the umbilical skin. That kalispel defect was enlarged and accommodated Al trocar without any complication. Insufflation was commenced which the patient tolerated to 15 mmHg well with no complication. Additional trocars were placed suprapubic and left lower quadrant under direct laparoscopic vision. At this time the patient was placed in Trendelenburg position with right side up and we proceeded to isolate the cecum which was densely adhered to the sidewall. Patient was taken to the operating room placed supine on the operating table. Informed consent was already obtained. Patient was induced for general endotracheal anesthesia. Patient at this time was placed for Fung catheter. Patient was offloaded and padded. Patient was prepped and draped in the usual sterile fashion. Timeout was called and agreed to by all in the room. A plan access point was incised periumbilical through the patient's historic umbilical hernia site. An incision was made sharply. Skin and subcutaneous tissues were divided using Bovie electrocautery. Fascia was encountered it was sharply divided. Muscle was bluntly divided. Posterior fascia was elevated and sharply divided. Abdominal cavity was entered without incident. Recurrent hernia was identified with incarcerated fat which should be completed for repair at the conclusion of this case. Additional ports after open Al was placed through this umbilical incision, were placed suprapubic and left lower quadrant 5 mm. Patient was placed in Trendelenburg with right side up, right lower quadrant adhesions were diligently lysed. The appendix was continued to be mobilized and thereafter we achieved mobilization medially taking care to note the location of the ureter which was protected and identified throughout the entirety of this case especially given the extent of the patients inflammatory changes. Superlative nonperforated appendicitis identified. Ultimately the cecum was isolated free, and the appendix was thereafter completely mobilized off the abdominal and pelvic sidewall. At this time there were dense adhesions noted of the appendix to the ascending colon and cecum and this required careful dissection as well, both blunt and also using the suction wet cleaner machine. At this time a [place] was used to dissect the cecal-appendiceal junction and thereafter using a ENDOGIA linear cutting stapler, the appendix was divided at the base to include portion at the cecum. The ileocecal valve was identified and protected throughout with no involvement. At this time, we continued to mobilize the appendix off the ascending colon and caecum making sure there was no inadvertent injury to the ascending colon and the cecum which was again densely adhered to the appendix. This was performed with great care using blunt as well as sharp dissection and ultimately isolated and dissected free the appendix which was placed into an Endo Catch bag for control of any further spillage. The appendiceal staple line and mesoappendix staple line and ligature were evaluated and hemostatic. At this time, we extensively irrigated the abdomen with greater than 2 liters of sterile saline and aspirated clear. Umbilical site, after ports were removed, was closed in an interrupted fashion to address the hernia with 0 Vicryl [id number]. Umbilical plasty was performed. Patient was already performed for tap block. All skin was reapproximated with subcuticular 4 Monocryl.
[2019-10-17 17:27] VITALS: BP 118/62
[2019-10-17] MEDS ORDERED: PANTOPRAZOLE 40 MG TABLET PO SCH (21:00)
== END 2019-10-17 17:33 | disposition home or self-care (01) ==
LOC: EDUNIT# → ED 21:28 → SDS 10-17 01:40 → MS2 10-17 02:18
PROVIDERS: ADMIT Surgery; ATTEND Surgery
PROC: 0DTJ4ZZ Resection of Appendix, Percutaneous Endoscopic Approach (ICD-10-PCS; principal; 2019-10-16)
DX: A41.9 Sepsis, unspecified organism (principal); K35.30 Acute appendicitis with localized peritonitis, without perforation or gangrene; K42.9 Umbilical hernia without obstruction or gangrene; F17.210 Nicotine dependence, cigarettes, uncomplicated
CPT/HCPCS: 36415; 44970; 71045; 74177; 80053; 80306; 80320; 81001; 82550; 83605; 83690; 84484; 85025; 85610; 85730; 88304; 93005; 96361; 96365; 96375; 99283; 99285; G0378; J0131; J7040; J7120; Q9967; 81003; 87086

== ENCOUNTER 2020-08-28 10:22 | Outpatient (CLI) | payer BC, OTHER ==
--- NOTE | 2020-08-28 12:40 | XRAY Report ---
PROCEDURE: Cervical Spine 2 View INDICATIONS: CERVICAL RADICULOPATHY TECHNIQUE: 4 view(s) of the cervical spine were acquired. COMPARISON: Prior cervical spine plain films not available for review.. FINDINGS: Bones: No fractures or dislocations to the T1 level. On the lateral projection there is minimal deg enerative disc disease at C2-C3, but moderate such degenerative change at C3-4 and C4-5. At C5-6 ther e is moderately severe degenerative disc disease with slight grade 1 retrolisthesis of C5 on C6 assoc iated with disc height reduction and facet osteoarthritis. Then, at C6-C7 there is moderate degenerat jim disc height reduction and endplate osteophyte formation. At C7-T1 a definite focus of significant degenerative disc disease is not seen. The lateral masses of C1 appear intact on the odontoid view. No suspicious bony lesions. Soft tissues: No prevertebral soft tissue swelling. IMPRESSION: Overall there is moderately severe degenerative disc disease along the cervical spine mo st pronounced at C5-6 with retrolisthesis grade 1 of C5 on C6. Spinal and foraminal stenosis likely i s present in this patient. Reviewed by: Erick Diggs MD on 08/28/2020 12:39 PM PDT Approved by: Erick Diggs MD on 08/28/2020 12:39 PM PDT Station ID: [id number]
--- NOTE | 2020-08-28 12:42 | XRAY Report ---
PROCEDURE: Shoulder 3 View LT INDICATIONS: SHOULDER IMPINGEMENT SYNDROME, LT TECHNIQUE: 3 views of the shoulder were acquired. COMPARISON: None. FINDINGS: Bones: No fractures or dislocations. No suspicious bony lesions. Visualized ribs appear intact. Soft tissues: Overlying the lateral aspect of the joint space there is a more amorphous calcificatio n about the humeral head, and superimposed on the middle third of the humeral head. IMPRESSION: Ovoid areas of calcification superimposed on the joint space, suspicious for representin g calcific intra-articular loose bodies or calcific bursitis/tendinitis. MR scanning may be warranted for more accurate assessment, with intra-articular contrast injection. Moderately severe to severe AC joint osteoarthritis noted. Reviewed by: Erick Diggs MD on 08/28/2020 12:41 PM PDT Approved by: Erick Diggs MD on 08/28/2020 12:41 PM PDT Station ID: [id number]
== END 2020-08-28 10:23 | disposition home or self-care (01) ==
LOC: DI.N 10:22
PROVIDERS: ATTEND Physician Assistant Medical
DX: M50.31 Other cervical disc degeneration, high cervical region (principal); M43.12 Spondylolisthesis, cervical region; M25.812 Other specified joint disorders, left shoulder

== ENCOUNTER 2020-09-16 09:23 | Outpatient (CLI) | payer OTHER ==
[2020-09-16 12:00] LABS: BASOPHILS % (AUTO) 0.5 %; EOSINOPHILS # (AUTO) 0.3 10^3/uL (0.0-0.7); EOSINOPHILS % (AUTO) 3.6 %; HCT - HEMATOCRIT 52.2 % (42.0-52.0); HGB - HEMOGLOBIN 17.4 g/dL (14.0-18.0); LYMPHOCYTES # (AUTO) 1.9 10^3/uL (1.5-3.5); LYMPHOCYTES % (AUTO) 26.2 %; MEAN CORPUSCULAR HEMOGLOBIN 30.1 pg (27.0-31.0); MEAN CORPUSCULAR HGB CONC 33.3 g/dL (32.0-36.0); MEAN CORPUSCULAR VOLUME 90.3 fL (80.0-94.0); MEAN PLATELET VOLUME 10.6 fL (7.4-11.4); MONOCYTES # (AUTO) 0.4 10^3/uL (0.0-1.0); MONOCYTES % (AUTO) 5.8 %; NEUTROPHILS # (AUTO) 4.7 10^3/uL (1.5-6.6); NEUTROPHILS % (AUTO) 63.6 %; PLT - PLATELET COUNT 312 10^3/uL (130-450); RED BLOOD COUNT 5.78 10^6/uL (4.70-6.10); RED CELL DISTRIBUTION WIDTH 12.8 % (12.0-15.0); WHITE BLOOD COUNT 7.4 x10^3/uL (4.8-10.8)
[2020-09-16 12:57] LABS: ALBUMIN 4.6 g/dL (3.2-5.5); ALBUMIN/GLOBULIN RATIO 1.5 (1.0-2.2); ALKALINE PHOSPHATASE 52 IU/L (42-121); ALT ALANINE AMINOTRANSFERASE 45 IU/L (10-60); AST ASPARTATE AMINOTRANSFERASE 21 IU/L (10-42); BUN - BLOOD UREA NITROGEN 14 mg/dL (6-20); CALCIUM 9.3 mg/dL (8.5-10.3); CARBON DIOXIDE - CO2 23 mmol/L (21-32); CHLORIDE 105 mmol/L (101-111); CHOL/HDL RATIO 7.9 (<5.0); CHOLESTEROL 277 mg/dL; CREATININE 1.1 mg/dL (0.6-1.2); GFR - MDRD 72 (>89); GLUCOSE 104 mg/dL (70-100); HDL CHOLESTEROL 35 mg/dL; LDL CHOLESTEROL,CALCULATED 198 mg/dL; LDL/HDL RATIO 5.7 (<3.6); POTASSIUM 4.1 mmol/L (3.5-5.0); SODIUM 137 mmol/L (135-145); TOTAL PROTEIN 7.6 g/dL (6.7-8.2); TRIGLYCERIDES 218 mg/dL; VLDL CHOLESTEROL 44 mg/dL
[2020-09-16 13:02] LABS: THYROID STIMULATING HORMONE 2.14 uIU/mL (0.34-5.60)
== END 2020-09-16 09:24 | disposition home or self-care (01) ==
LOC: LAB.N 09:23
PROVIDERS: ATTEND Physician Assistant Medical
DX: Z00.00 Encounter for general adult medical examination without abnormal findings (principal); Z12.5 Encounter for screening for malignant neoplasm of prostate
CPT/HCPCS: 36415; 80053; 80061; 83721; 84153; 84443; 85025

== ENCOUNTER 2021-01-27 08:51 | Outpatient (CLI) | payer OTHER ==
[2021-01-27 11:57] LABS: RHEUMATOID FACTOR NEGATIVE (Negative)
[2021-01-27 12:11] LABS: CRP - C-REACTIVE PROTEIN < 1.0 mg/dL (0-1.0)
[2021-01-27 12:12] LABS: URIC ACID 6.2 mg/dL (2.6-7.2)
== END 2021-01-27 23:59 | disposition home or self-care (01) ==
LOC: LAB.WCP 08:51
PROVIDERS: ATTEND Family Medicine
DX: M25.50 Pain in unspecified joint (principal)
CPT/HCPCS: 36415; 80053; 80061; 83721; 84550; 85651; 86140; 86430

== ENCOUNTER 2021-02-01 09:48 | Outpatient (CLI) | payer OTHER ==
--- NOTE | 2021-02-01 13:40 | MRI Report ---
PROCEDURE: Cervical Spine W/O INDICATIONS: CERVICAL RADICULOPATHY, LEFT SH IMPINGEMENT SYNDRO TECHNIQUE: Noncontrast sagittal T1 spin echo and T2 fast spin echo, sagittal STIR, foraminal oblique sagittal T2 fast spin echo, and axial gradient echo or T2 fast spin echo through the cervical spine. COMPARISON: None. FINDINGS: Image quality: Excellent. Alignment and Curvature: There is loss of normal cervical lordosis. There is mild, grade 1 retrolist hesis of C3 on C4, C4 on C5, C5 on C6, and C6 on C7. Bone Marrow: Marrow demonstrates normal overall signal. There is mild reactive signal within the en d but adjacent to the C3-C4, C4-C5, C5-C6, and C6-C7 intervertebral discs. Spinal Cord: Visualized spinal cord has normal size and signal. No cerebellar tonsillar herniation. Paraspinous Soft Tissues: No paravertebral masses. Prevertebral soft tissues are normal in thicknes s. C2-C3: Mild diffuse disc bulge. No significant canal, nor foraminal stenosis. C3-C4: Mild disc height loss and desiccation. Mild diffuse disc bulge. Mild facet and uncovertebral hypertrophy. Mild canal stenosis. Mild bilateral foraminal stenosis. C4-C5: Mild disc height loss and desiccation. Mild diffuse disc bulge with superimposed broad-based left posterolateral protrusion. Mild facet and uncovertebral hypertrophy bilaterally. Moderate canal stenosis. Severe left and mild right foraminal stenosis. Left C5 nerve root compression C5-C6: Moderate disc height loss and desiccation. Mild diffuse disc bulge. Moderate facet and uncove rtebral hypertrophy bilaterally. Moderate to severe canal stenosis. Mild cord flattening. Severe bila teral foraminal stenosis with bilateral C6 nerve root compression. C6-C7: Moderate disc height loss and desiccation. Mild diffuse disc bulge with superimposed broad-ba sed right posterolateral and far lateral protrusion. Mild left and moderate right facet and uncoverte bral hypertrophy bilaterally. Moderate to severe canal stenosis. Minimal cord flattening. Severe righ t greater than left foraminal stenosis with bilateral C7 nerve root compression. C7-T1: Mild disc height loss and desiccation. Mild facet and uncovertebral hypertrophy bilaterally. No significant canal, nor foraminal stenosis. IMPRESSION: 1. Multilevel degenerative disc and facet disease, as well as uncovertebral hypertrophy. 2. Multilevel canal stenoses, worst at C5-C6 and C6-C7, where there is associated cord flattening. 3. Multilevel foraminal stenoses, worst at C4-C5, C5-C6, and C6-C7, where there is associated intrafo raminal nerve root compression. Recommend correlation with clinical symptoms to ascertain relevance o f these findings. Reviewed by: Ehsan Abad MD on 02/01/2021 1:38 PM PDT Approved by: Ehsan Abad MD on 02/01/2021 1:38 PM PDT Station ID: [id number]
--- NOTE | 2021-02-01 16:20 | MRI Report ---
PROCEDURE: Shoulder LT W/O INDICATIONS: CERVICAL RADICULOPATHY, LEFT SH IMPINGEMENT SYNDRO TECHNIQUE: Noncontrast oblique coronal T2 fast spin echo with fat saturation, oblique sagittal T1 spin echo and T2 fast spin echo with fat saturation, axial T1 spin echo and T2 fast spin echo with fat saturation t hrough the shoulder. COMPARISON: Left shoulder radiographs 08/28/2020. FINDINGS: Image quality: Excellent. Rotator cuff: There is moderate supraspinatus and infraspinatus. A 5 mm hypodensity within the dista l supraspinatus tendon is consistent with a calcification related to calcific tendinopathy. Additiona l smaller calcifications are seen at the mid to posterior infraspinatus tendon insertion. The teres m inor and subscapularis tendons are intact. There is grade 3-4 fatty infiltration of the teres minor m uscle. No mass is seen along the course of the axillary nerve. The remaining rotator cuff muscles are normal in bulk. Bones and bursae: No acute trabecular bone injury. Moderate acromioclavicular osteoarthrosis with sub chondral edema and small marginal osteophytes. There is a trace amount of subacromial/subdeltoid burs al fluid. A physiologic amount of glenohumeral fluid is present. Capsule and soft tissues: There is nondisplaced tearing of the posterior, inferior, and anteroinferi or labrum with small paralabral cysts. Posteriorly, a lobular paralabral cyst is seen extending media lly over the glenoid rim into the spinoglenoid notch, measuring approximately 23 x 6 x 12 mm. Inferio rly, small paralabral cysts are seen measuring 4-8 mm. The biceps long head tendon is intact. There i s partial effacement of the fat in the rotator interval. The glenohumeral ligaments are normal in thi ckness. IMPRESSION: 1. Moderate supraspinatus and infraspinatus tendinosis and calcific tendinopathy. 2. Nondisplaced tearing of the anteroinferior, inferior, and posterior labrum with multiple paralabr al cysts. The largest is located posteriorly and extends into the spinoglenoid notch without signs of infraspinatus denervation changes. 3. Moderate to severe fatty infiltration of the teres minor muscle is most likely secondary to chron ic denervation changes. No mass is seen along the course of the axillary nerve. 4. Moderate acromioclavicular osteoarthrosis with subchondral edema. Reviewed by: Young Campos MD on 02/01/2021 4:19 PM PDT Approved by: Young Campos MD on 02/01/2021 4:19 PM PDT Station ID: [id number]
== END 2021-02-01 09:49 | disposition home or self-care (01) ==
LOC: DI 09:48
PROVIDERS: ATTEND Physician Assistant Medical
DX: M47.22 Other spondylosis with radiculopathy, cervical region (principal); M50.11 Cervical disc disorder with radiculopathy, high cervical region; M48.02 Spinal stenosis, cervical region; M43.12 Spondylolisthesis, cervical region; M50.121 Cervical disc disorder at C4-C5 level with radiculopathy; M47.23 Other spondylosis with radiculopathy, cervicothoracic region; M75.32 Calcific tendinitis of left shoulder; S43.492A Other sprain of left shoulder joint, initial encounter; M19.012 Primary osteoarthritis, left shoulder; R93.6 Abnormal findings on diagnostic imaging of limbs

== ENCOUNTER 2021-07-09 10:01 | Outpatient (CLI) | payer OTHER ==
[2021-07-09 12:09] LABS: BASOPHILS # (AUTO) 0.1 10^3/uL (0.0-0.1); BASOPHILS % (AUTO) 0.9 %; EOSINOPHILS # (AUTO) 0.2 10^3/uL (0.0-0.7); EOSINOPHILS % (AUTO) 3.7 %; HCT - HEMATOCRIT 48.5 % (42.0-52.0); HGB - HEMOGLOBIN 16.9 g/dL (14.0-18.0); LYMPHOCYTES # (AUTO) 1.6 10^3/uL (1.5-3.5); LYMPHOCYTES % (AUTO) 24.8 %; MEAN CORPUSCULAR HEMOGLOBIN 31.1 pg (27.0-31.0); MEAN CORPUSCULAR HGB CONC 34.8 g/dL (32.0-36.0); MEAN CORPUSCULAR VOLUME 89.2 fL (80.0-94.0); MEAN PLATELET VOLUME 10.3 fL (7.4-11.4); MONOCYTES # (AUTO) 0.3 10^3/uL (0.0-1.0); MONOCYTES % (AUTO) 4.4 %; NEUTROPHILS # (AUTO) 4.3 10^3/uL (1.5-6.6); NEUTROPHILS % (AUTO) 65.9 %; PLT - PLATELET COUNT 284 10^3/uL (130-450); RED BLOOD COUNT 5.44 10^6/uL (4.70-6.10); RED CELL DISTRIBUTION WIDTH 12.4 % (12.0-15.0); WHITE BLOOD COUNT 6.6 x10^3/uL (4.8-10.8)
[2021-07-09 12:23] LABS: CALCIUM 8.9 mg/dL (8.5-10.3); CREATININE 1.2 mg/dL (0.6-1.2); POTASSIUM 3.8 mmol/L (3.5-5.0)
[2021-07-09 12:45] LABS: PT - PROTHROMBIN TIME 11.7 secs (9.9-12.6)
[2021-07-09 13:07] LABS: PARTIAL THROMBOPLASTIN TIME 32.7 secs (24.9-33.3)
== END 2021-07-09 10:02 | disposition home or self-care (01) ==
LOC: LAB.N 10:01
PROVIDERS: ATTEND Orthopaedic Surgery Orthopaedic Surgery of the Spine
DX: Z01.812 Encounter for preprocedural laboratory examination (principal); Z51.81 Encounter for therapeutic drug level monitoring
CPT/HCPCS: 36415; 80048; 85025; 85610; 85730

== ENCOUNTER 2021-07-19 10:04 | Outpatient (CLI) | payer OTHER | END 2021-07-19 10:05 | disposition home or self-care (01) | LOC: RT 10:04 | PROVIDERS: ATTEND Orthopaedic Surgery Orthopaedic Surgery of the Spine | DX: Z01.818 Encounter for other preprocedural examination (principal) | CPT/HCPCS: 93005 ==

== ENCOUNTER 2021-11-11 07:16 | Outpatient (CLI) | payer OTHER ==
[2021-11-11 11:57] LABS: BASOPHILS # (AUTO) 0.1 10^3/uL (0.0-0.1); BASOPHILS % (AUTO) 0.8 %; EOSINOPHILS # (AUTO) 0.3 10^3/uL (0.0-0.7); EOSINOPHILS % (AUTO) 4.1 %; HCT - HEMATOCRIT 49.8 % (42.0-52.0); HGB - HEMOGLOBIN 16.7 g/dL (14.0-18.0); MEAN CORPUSCULAR HEMOGLOBIN 29.9 pg (27.0-31.0); MEAN CORPUSCULAR HGB CONC 33.5 g/dL (32.0-36.0); MEAN CORPUSCULAR VOLUME 89.1 fL (80.0-94.0); MEAN PLATELET VOLUME 11.8 fL (7.4-11.4); MONOCYTES # (AUTO) 0.5 10^3/uL (0.0-1.0); MONOCYTES % (AUTO) 7.1 %; NEUTROPHILS # (AUTO) 4.2 10^3/uL (1.5-6.6); NEUTROPHILS % (AUTO) 59.9 %; PLT - PLATELET COUNT 285 10^3/uL (130-450); RED BLOOD COUNT 5.59 10^6/uL (4.70-6.10); RED CELL DISTRIBUTION WIDTH 12.8 % (12.0-15.0); WHITE BLOOD COUNT 7.1 x10^3/uL (4.8-10.8)
[2021-11-11 12:35] LABS: ALBUMIN 4.3 g/dL (3.2-5.5); ALBUMIN/GLOBULIN RATIO 1.4 (1.0-2.2); ALKALINE PHOSPHATASE 59 IU/L (42-121); ALT ALANINE AMINOTRANSFERASE 41 IU/L (10-60); AST ASPARTATE AMINOTRANSFERASE 21 IU/L (10-42); BILIRUBIN,TOTAL 0.9 mg/dL (0.2-1.0); BUN - BLOOD UREA NITROGEN 14 mg/dL (6-20); CALCIUM 9.3 mg/dL (8.5-10.3); CARBON DIOXIDE - CO2 27 mmol/L (21-32); CHLORIDE 104 mmol/L (101-111); CHOL/HDL RATIO 8.4 (<5.0); CHOLESTEROL 251 mg/dL; CREATININE 1.1 mg/dL (0.6-1.2); GFR - MDRD 71 (>89); GLUCOSE 98 mg/dL (70-100); HDL CHOLESTEROL 30 mg/dL; LDL CHOLESTEROL,CALCULATED 182 mg/dL; LDL/HDL RATIO 6.1 (<3.6); POTASSIUM 3.9 mmol/L (3.5-5.0); SODIUM 140 mmol/L (135-145); TOTAL PROTEIN 7.4 g/dL (6.7-8.2); TRIGLYCERIDES 197 mg/dL; VLDL CHOLESTEROL 39 mg/dL
[2021-11-11 12:43] LABS: THYROID STIMULATING HORMONE 2.65 uIU/mL (0.34-5.60)
== END 2021-11-11 07:17 | disposition home or self-care (01) ==
LOC: LAB.N 07:16
PROVIDERS: ATTEND Physician Assistant Medical
DX: Z00.00 Encounter for general adult medical examination without abnormal findings (principal); Z12.5 Encounter for screening for malignant neoplasm of prostate
CPT/HCPCS: 36415; 80053; 80061; 83721; 84153; 84443; 85025

== ENCOUNTER 2022-04-18 07:59 | Outpatient (CLI) | payer OTHER ==
[2022-04-18 13:13] LABS: CHOL/HDL RATIO 6.9 (<5.0); CHOLESTEROL 243 mg/dL; HDL CHOLESTEROL 35 mg/dL; LDL CHOLESTEROL,CALCULATED 168 mg/dL; LDL/HDL RATIO 4.8 (<3.6); TRIGLYCERIDES 198 mg/dL; VLDL CHOLESTEROL 40 mg/dL
== END 2022-04-18 08:00 | disposition home or self-care (01) ==
LOC: LAB.N 07:59
PROVIDERS: ATTEND Physician Assistant Medical
DX: E78.1 Pure hyperglyceridemia (principal)
CPT/HCPCS: 36415; 80061; 83721